=== PATIENT | male | born 2000 | race African-American/Black ===

== ENCOUNTER 2021-07-25 19:16 | Emergency (ER) | payer MEDICAID ==
[~2021-07-25] VITALS: Ht 180.3 cm; Wt 68.0 kg
[~2021-07-25 19:16] MED LIST: ALLEGRA ALLERG180 MG PO; LIORESAL 10 MG10 MG PO; NOHOMEMEDICATIONS; ULTRAM50 MG PO
[2021-07-25] MEDS ORDERED: HYDROXYZINE PAM25 M1 PO (20:35)
[2021-07-25 20:51] VITALS: BP 110/63
== END 2021-07-25 20:51 | disposition home or self-care (01) ==
LOC: M.ERS 19:16
DX: R09.89 Other specified symptoms and signs involving the circulatory and respiratory systems (principal); F41.9 Anxiety disorder, unspecified; Z91.048 Other nonmedicinal substance allergy status